=== PATIENT | female | born 1945 | race Caucasian/White ===

== ENCOUNTER 2020-01-18 10:54 | Emergency (ER) | payer MEDICARE, OTHER ==
[~2020-01-18] VITALS: Ht 157.5 cm; Wt 90.7 kg
[2020-01-18 11:22] LABS: BASOPHILS ABSOLUTE AUTO 0.03 K/mm3 (0.00-0.23); BASOPHILS PERCENT AUTO 0 % (0-2); EOSINOPHILS ABSOLUTE AUTO 0.01 K/mm3 (0.00-0.68); EOSINOPHILS PERCENT AUTO 0 % (0-6); Hematocrit 44.1 % (33.0-51.0); IMMATURE GRAN ABSOLUTE AUTO 0.04 K/mm3 (0.00-0.10); IMMATURE GRAN PERCENT AUTO 0 % (0-1); LYMPHOCYTES ABSOLUTE AUTO 2.09 K/mm3 (0.84-5.20); LYMPHOCYTES PERCENT AUTO 21 % (21-46); MONOCYTES ABSOLUTE AUTO 0.57 K/mm3 (0.16-1.47); MONOCYTES PERCENT AUTO 6 % (4-13); Mean Corpuscular HGB 29.9 pg (26.0-34.0); Mean Corpuscular HGB Conc 31.7 g/dL (31.5-36.5); Mean Corpuscular Volume 94 fL (80-100); Mean Platelet Volume 10.2 fL (9.1-12.4); NEUTROPHILS ABSOLUTE AUTO 7.39 K/mm3 (1.96-9.15); NEUTROPHILS PERCENT AUTO 73 % (41-73); Platelet Count 233 K/mm3 (150-400); RDW Coefficient Variation 11.9 % (11.7-14.2); RDW Standard Deviation 41.1 fL (35.1-46.3); Red Blood Cell Count 4.69 M/mm3 (3.80-5.20); White Blood Cell Count 10.13 K/mm3 (4.00-11.30)
[2020-01-18 11:51] LABS: Alanine Aminotransfer (ALT/SGP 17 U/L (12-78); Albumin, Blood 3.6 g/dL (3.4-5.0); Albumin/Globulin Ratio 0.9 (0.8-1.8); Alk Phos 73 U/L (50-136); Anion Gap 4 mmol/L (6-16); Aspartate Aminotrans (AST/SGOT 12 U/L (12-37); Bilirubin, Total 0.4 mg/dL (0.1-1.0); Blood Urea Nitrogen 12 mg/dL (8-24); Bun/Creatinine Ratio 20.8 (12.0-20.0); CO2, Blood 35 mmol/L (21-32); Calcium, Blood 9.9 mg/dL (8.5-10.1); Chloride, Blood 101 mmol/L (98-108); Creatinine, Blood 0.58 mg/dL (0.40-1.00); Glomerular Filtration Rate >60 (60-); Glucose, Blood 98 mg/dL (70-99); Potassium, Blood 3.6 mmol/L (3.5-5.5); Sodium, Blood 140 mmol/L (136-145); Total Protein, Blood 7.6 g/dL (6.4-8.2); Troponin I <0.015 ng/mL (0.000-0.040)
== END 2020-01-18 13:48 | disposition home or self-care (01) ==
LOC: ER 10:54
PROVIDERS: Emergency Medicine
DX: J40 Bronchitis, not specified as acute or chronic (principal); Z88.6 Allergy status to analgesic agent; Z87.891 Personal history of nicotine dependence
CPT/HCPCS: 36415; 71045; 80053; 83880; 84484; 85025; 93005; 93010; 99285-25

== ENCOUNTER 2020-01-30 11:03 | Inpatient (IN) | payer MEDICARE, OTHER ==
[~2020-01-30] VITALS: Ht 157.5 cm; Wt 86.6 kg
[2020-01-30 12:01] LABS: BASOPHILS ABSOLUTE AUTO 0.03 K/mm3 (0.00-0.23); BASOPHILS PERCENT AUTO 0 % (0-2); EOSINOPHILS ABSOLUTE AUTO 0.02 K/mm3 (0.00-0.68); EOSINOPHILS PERCENT AUTO 0 % (0-6); Hematocrit 44.9 % (33.0-51.0); Hemoglobin 14.4 g/dL (11.5-16.0); IMMATURE GRAN ABSOLUTE AUTO 0.05 K/mm3 (0.00-0.10); IMMATURE GRAN PERCENT AUTO 0 % (0-1); LYMPHOCYTES ABSOLUTE AUTO 1.17 K/mm3 (0.84-5.20); LYMPHOCYTES PERCENT AUTO 10 % (21-46); MONOCYTES ABSOLUTE AUTO 0.63 K/mm3 (0.16-1.47); MONOCYTES PERCENT AUTO 5 % (4-13); Mean Corpuscular HGB Conc 32.1 g/dL (31.5-36.5); Mean Corpuscular Volume 94 fL (80-100); Mean Platelet Volume 10.4 fL (9.1-12.4); NEUTROPHILS ABSOLUTE AUTO 9.73 K/mm3 (1.96-9.15); NEUTROPHILS PERCENT AUTO 84 % (41-73); Platelet Count 228 K/mm3 (150-400); RDW Coefficient Variation 12.2 % (11.7-14.2); RDW Standard Deviation 42.3 fL (35.1-46.3); White Blood Cell Count 11.63 K/mm3 (4.00-11.30)
[2020-01-30 12:25] LABS: Alanine Aminotransfer (ALT/SGP 16 U/L (12-78); Albumin, Blood 3.2 g/dL (3.4-5.0); Albumin/Globulin Ratio 0.7 (0.8-1.8); Alk Phos 85 U/L (50-136); Anion Gap 5 mmol/L (6-16); Aspartate Aminotrans (AST/SGOT 18 U/L (12-37); Bilirubin, Total 0.8 mg/dL (0.1-1.0); Blood Urea Nitrogen 9 mg/dL (8-24); Bun/Creatinine Ratio 16.3 (12.0-20.0); CO2, Blood 32 mmol/L (21-32); Calcium, Blood 9.5 mg/dL (8.5-10.1); Chloride, Blood 99 mmol/L (98-108); Creatinine, Blood 0.55 mg/dL (0.40-1.00); Globulin, Blood 4.5 g/dL (2.2-4.0); Glomerular Filtration Rate >60 (60-); Glucose, Blood 125 mg/dL (70-99); Sodium, Blood 136 mmol/L (136-145); Total Protein, Blood 7.7 g/dL (6.4-8.2); Troponin I <0.015 ng/mL (0.000-0.040)
[2020-01-30] MEDS ORDERED: PRED20 PO (12:41)
[2020-01-30] MEDS ORDERED: TIOT18 INH (12:41)
[2020-01-30] MEDS ORDERED: FLUTICASONE PRO16 GM (12:42)
[2020-01-30] MEDS ORDERED: ACETAMINOPHEN-COD #3 PO (12:43)
[2020-01-30] MEDS ORDERED: ADVAIR HFA 230-28 GM INH (12:44)
[2020-01-30] MEDS ORDERED: OMEP20ER PO (12:45)
[2020-01-30] MEDS ORDERED: NEURONTIN300 MG PO ×2 (12:45→16:07)
[2020-01-30 14:45] LABS: Influenza A, PCR Negative (NEGATIVE); Influenza B, PCR Negative (NEGATIVE); Resp Syncytial Virus, PCR Negative (NEGATIVE); SARS-Cov-2 (COVID-19) PCR, MMC Negative (NEGATIVE)
[2020-01-30] MEDS ORDERED: PRILOSEC OTC20 MG PO (16:07)
[2020-01-30] MEDS ORDERED: COMBIVENT RESPIM4 G1 INH (16:09)
--- NOTE | 2020-01-31 04:10 | NUR ---
SHIFT SUMMARY ADMITTED FOR COPD EXACERBATION VS. PNEUMONIA. FULL CODE. PLAN IS FOR IV ANTIBIOTICS AND SOLUMEDROL. SHE RUNS TACHYCARDIC. SHE INFORMS ME THAT THERE IS A POSSIBILITY SHE HAS COLON CANCER. SHE IS ALLERGIC TO IBUPROFEN. SHE IS ON 3 LPM O2 HERE, 2 LPM O2 IS BASELINE. SHE IS A&O X4. SHE DOES REFUSE CERTAIN MEDICATIONS AND TX'S.
--- NOTE | 2020-01-31 06:00 | NUR ---
PT REFUSING INTERVENTIONS PT REFUSING LAB DRAW, PT REFUSING ORDERED XRAY. PT STATES SHE DOES NOT WANT TO BE BOTHERED THIS EARLY AND SHE IS TRYING TO SLEEP
--- NOTE | 2020-01-31 06:14 | NUR ---
PT HAS AGREED TO GO TO XRAY XRAY TRANSPORT INFORMED
[2020-01-31 09:49] LABS: BASOPHILS ABSOLUTE AUTO 0.01 K/mm3 (0.00-0.23); BASOPHILS PERCENT AUTO 0 % (0-2); EOSINOPHILS PERCENT AUTO 0 % (0-6); Hematocrit 42.3 % (33.0-51.0); Hemoglobin 13.5 g/dL (11.5-16.0); IMMATURE GRAN ABSOLUTE AUTO 0.02 K/mm3 (0.00-0.10); IMMATURE GRAN PERCENT AUTO 0 % (0-1); LYMPHOCYTES ABSOLUTE AUTO 0.52 K/mm3 (0.84-5.20); LYMPHOCYTES PERCENT AUTO 5 % (21-46); MONOCYTES ABSOLUTE AUTO 0.11 K/mm3 (0.16-1.47); MONOCYTES PERCENT AUTO 1 % (4-13); Mean Corpuscular HGB 30.2 pg (26.0-34.0); Mean Corpuscular HGB Conc 31.9 g/dL (31.5-36.5); Mean Corpuscular Volume 95 fL (80-100); Mean Platelet Volume 10.7 fL (9.1-12.4); NEUTROPHILS ABSOLUTE AUTO 10.57 K/mm3 (1.96-9.15); NEUTROPHILS PERCENT AUTO 94 % (41-73); Platelet Count 212 K/mm3 (150-400); RDW Coefficient Variation 12.2 % (11.7-14.2); RDW Standard Deviation 42.5 fL (35.1-46.3); Red Blood Cell Count 4.47 M/mm3 (3.80-5.20); White Blood Cell Count 11.23 K/mm3 (4.00-11.30)
[2020-01-31 10:00] LABS: Anion Gap 6 mmol/L (6-16); Blood Urea Nitrogen 9 mg/dL (8-24); Bun/Creatinine Ratio 21.5 (12.0-20.0); CO2, Blood 31 mmol/L (21-32); Calcium, Blood 9.6 mg/dL (8.5-10.1); Chloride, Blood 100 mmol/L (98-108); Creatinine, Blood 0.42 mg/dL (0.40-1.00); Glomerular Filtration Rate >60 (60-); Glucose, Blood 200 mg/dL (70-99); Potassium, Blood 3.6 mmol/L (3.5-5.5); Sodium, Blood 137 mmol/L (136-145)
--- NOTE | 2020-01-31 17:19 | NUR ---
SHIFT SUMMARY PATIENT DENIES PAIN AND NAUSEA. SHORTNESS OF BREATH WITH EXERTION. 3L/NC TO MAINTAIN OXYGEN SATURATION ABOVE 92%. PATIENT UP INDEPENDENT TO BATHROOM. EATING AND DRINKING WELL. DR. GAN CONSULTED ON PATIENT. PATIENT NPO AT MIDNIGHT FOR BROCHOSCOPY IN AM. HOLD LOVENOX.
--- NOTE | 2020-02-01 04:31 | NUR ---
SHIFT SUMMARY ADMITTED FOR CAP. FULL CODE. PLAN IS FOR BRONCHOSCOPY THIS MORNING. PT HAS BEEN NPO SINCE MIDNIGHT. LOVENOX TO BE HELD THIS MORNING, I WILL PASS THIS ON TO DAY RN. RT TX'S ARE SCHEDULED. PT IS ON 3-3 1/2 L OF O2, 2 LPM O2 IS BASELINE. SHE IS A FORMER SMOKER, SHE INFORMS ME THAT SHE MAY HAVE COLON CANCER. SHE LIVES WITH HER SON AND DIL. DR MULLIGAN IS CONSULT.
[2020-02-01 04:38] LABS: Hematocrit 40.3 % (33.0-51.0); Hemoglobin 12.5 g/dL (11.5-16.0); Mean Corpuscular HGB 29.8 pg (26.0-34.0); Mean Corpuscular Volume 96 fL (80-100); Mean Platelet Volume 10.4 fL (9.1-12.4); Platelet Count 205 K/mm3 (150-400); RDW Coefficient Variation 12.4 % (11.7-14.2); RDW Standard Deviation 43.9 fL (35.1-46.3); White Blood Cell Count 11.17 K/mm3 (4.00-11.30)
[2020-02-01 05:03] LABS: Albumin, Blood 2.7 g/dL (3.4-5.0); Anion Gap 2 mmol/L (6-16); Blood Urea Nitrogen 10 mg/dL (8-24); Bun/Creatinine Ratio 17.9 (12.0-20.0); CO2, Blood 37 mmol/L (21-32); Calcium, Blood 9.3 mg/dL (8.5-10.1); Chloride, Blood 101 mmol/L (98-108); Creatinine, Blood 0.56 mg/dL (0.40-1.00); Glomerular Filtration Rate >60 (60-); Glucose, Blood 104 mg/dL (70-99); Phosphorus, Blood 3.7 mg/dL (2.5-4.9); Potassium, Blood 3.5 mmol/L (3.5-5.5); Sodium, Blood 140 mmol/L (136-145)
--- NOTE | 2020-02-01 13:29 | NUR ---
History, Chart, Medications and Allergies reviewed before start of procedure. Patient confirms NPO status and agrees with scheduled surgery.
--- NOTE | 2020-02-01 14:43 | NUR ---
02/01/20 1443 Brennon Hernandes History, Chart, Medications and Allergies reviewed before start of procedure.MONITOR INTACT WITH CONTINUOUS PULSE OXIMETRY AND INTERMITTENT BP.3-LEAD EKG REVIEWED WITH PHYSICIAN PRIOR TO START OF PROCEDURE.O2 VIA N/C INTACT THROUGHOUT SEDATION/PROCEDURE. PATIENT DETERMINED TO BE ASA APPROPRIATE FOR PROPOFOL SEDATION PRIOR TO START OF PROCEDURE BY DR. MULLIGAN
--- NOTE | 2020-02-01 17:53 | NUR ---
SHIFT SUMMARY PT AXO, THOUGH IRRITABLE AND WITHDRAWN. REFUSED ALL AM MEDS EXCEPT FOR PRILOSEC. PT UP AD MELIZA IN ROOM. SOB AT REST AND WITH EXERTION. PT O2 SATS BETWEEN 91-95% THIS SHIFT ON 3L. PT DENIES PAIN AND N/V. PT HAD BRONCHOSCOPY WITH BIOPSY, SEE NOTE. PT MAINTAINING SATS POST PROCEDURE. BED IN LOW POSITION, CALL LIGHT WITHIN REACH.
--- NOTE | 2020-02-02 00:57 | NUR ---
02/01/20 2230 PT C/O SOB. MODERATE SOB NOTED AT REST. VITALS TAKEN AND O2 SAT= 95-100%. PT ON O2 AT 3LPM. RESP CARE CALLED AND BREATHING TX GIVEN. PT FEELING BETTER AFTERWARDS.
--- NOTE | 2020-02-02 06:21 | NUR ---
02/02/20 0620 PT SLEPT ON AND OFF DUE TO EPISODES OF MODERATE SOB. VITALS REMAIN STABLE. VOIDING QS. FRUSTRATED WITH ILLNESS. IRRITABLE AT TIMES WITH STAFF. RESP. CARE CALLED SEVERAL TIMES FOR TREATMENTS, WHICH HELPED.
--- NOTE | 2020-02-02 08:06 | NUR ---
ASSUMED CARE OF PT- PT ADMITTED WITH POSSIBLE PNEUMONIA AND LEFT LUNG COLLAPSE R/T MUCUS PLUGGING. PT IN BED CALL LIGHT IN REACH NO S&S OF DISTRESS NOTED AT SHIFT CHANGE. ON MORNING ASSESSMENT PT WAS WORKING A BIT HARDER TO BREATHE LUNG SOUNDS CLEAR IN THE RIGHT AND COARSE WHEEZE IN THE UPPER LEFT ABSENT IN THE LOWER LEFT. PT ON 3L VIA NC HOME DOSE IS 2L. SATS IN THE 90'S. WILL CTM.
--- NOTE | 2020-02-02 11:43 | NUR ---
PT SON SADIE CALLED FOR AN UPDATE- WANTED TO KNOW IF BIOPSY RESULTS WERE IN INFORMED HIM THOSE TYPICALLY TAKE DAYS TO GET THE RESULTS. PT STATED FAMILY HAS BEEN CALLING AND THE PT IS NOT ANSWERING THE PHONE. REQUESTED STAFF CHECK ON THE PHONE TO ENSURE IT IS WORKING. HE ALSO STATED THE PT SEEMS TO BE UNAWARE OF WHAT IS GOING ON WITH HER HEALTH AND STATES SHE IS [place] AND MAY NOT BE HEARING MUCH STAFF ARE THINKING. WILL ATTEMPT TO IMPROVE COMMUNICATION WITH THE PT.
--- NOTE | 2020-02-02 17:14 | NUR ---
SHIFT SUMMARY- PT HAS HAD NO ACUTE CHANGE T/O THE SHIFT; CHANGED FROM PO TO IV SOLUMEDROL TODAY. IV INFILTRATED THIS EVENING AND WAS REMOVED. NEW IV STARTED. IV SOLUMEDROL GIVEN AFTER IV REPLACED. PT C/O HEADACHE THIS EVENING, MEDICATED WITH TYLENOL. BRONCHOSCOPY COMPLETED YESTERDAY WITH BIOPSY, PT AWAITING RESULTS. PT ON 3L O2 VIA NC. PT WORKED WITH OT TODAY AFTER GOING TO THE BATHROOM SHE WAS SATTING 89% ON 3L. PT INDEPENDENT IN THE ROOM. SPOKE TO RT ABOUT TITRATING DOWN THE O2 TO HER HOME DOSE, FOR PT SAFETY O2 HAS REMAINED AT 3L T/O THE DAY.
--- NOTE | 2020-02-03 05:54 | NUR ---
SHIFT SUMMARY: ARIANNE IS A&OX4. VSS, NO ACUTE EVENTS OVERNIGHT. SHE DID VOICE FRUSTRATION AT HER INABILITY TO SLEEP. SHE REPORTED TAKING GABAPENTIN AT NIGHT WHICH HELPS HER TO SLEEP. ORDER OBATINED FROM [employer] TRAVEL COUNSELOR PHYSICIAN TO CHANGE GABAPENTIN ORDER TO BEDTIME. PT IS INDEPENDENT IN THE ROOM. SHE DID DESAT TO 88% ON EXERTION ON 2 L NC, BUT RECOVERED QUICKLY. SHE DOES USE 2 L VIA NC AT BASELINE. SHE IS ABLE TO MAKE HER NEEDS KNOWN. SHE IS LYING IN BED WITH HER CALL LIGHT IN REACH. WILL REPORT TO DAY SHIFT RN.
--- NOTE | 2020-02-03 11:15 | NUR ---
0930 PT C.O. RIB AND BACK PAIN. STATES TAKES TYLENOL 3. NOT ON EMAR. CALLED DR PANDYA. ORDERS GIVEN
--- NOTE | 2020-02-03 17:10 | NUR ---
PT QUITE PLEASANT AND TALKATIVE TODAY. WANTING TO GO HOME. STATES MOST LIKELY TOMORROW. NO NEW CONCERNS TODAY. PAIN MANAGED WITH AVAIL MEDS. PT VERBALIZED HAS TYLENOL 3 IN PURSE AND WAS ABOUT TO TAKE ONE THIS MORNING. PILLS NOW IN PHARMACY. OKAYED ON EMAR OUR TYLENOL 3. PT STATES IS WORKING WELL. COUGH IMPROVING T/O DAY. BED IN LOW POSITIOIN, CALL LITE IN REACH, CALLS APROP
--- NOTE | 2020-02-04 04:28 | NUR ---
NURSE EXTERN SUMMARY A/O TO SELF ONLY. PT FINISHED SUPREP BOWEL TX THIS SHIFT, MULTIPLE EPISODES OF INCONTINENT LOOSE STOOLS, NO BLOOD NOTED IN URINE OR STOOLS. SHE HAS BEEN YELLING OUT FOR HER T/O SHIFT, EASILY REDIRECTABLE. DENIES PAIN OR SOB. PT TO HAVE COLONOSCOPY THIS AM. NO ACUTE CHANGES AT THIS TIME. BED IN LOWEST POSITION WITH CALL LIGHT IN REACH. WILL CONTINUE TO MONITOR AND REPORT TO ONCOMING RN
--- NOTE | 2020-02-04 04:39 | NUR ---
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 CURRENTLY ON 2L O2 VIA NC, SATS HAVE BEEN GREATER THAN 92. DENIES PAIN OR SOB AT THIS TIME. NO ACUTE CHANGES NOTED. BED IN LOWEST POSITION WITH CALL LIGHT IN REACH. WILL CONTINUE TO MONITOR AND REPORT TO ONCOMING RN.
--- NOTE | 2020-02-04 08:30 | NUR ---
PT PLEASANT COOP A/O X3 TALKATIVE. EXPRESSING HOPEFUL TO GO HOME THIS DAY. FEELS BASELINE. H/R REG, NO MURMER NOTED. NO TELE. LUNGS DIM ON LEFT, VERY LITTLE AIR MOVEMENT. RT IS CLEAR WITH LITE WHEEEZE ON LOW RT. ON 2L O2 PER HOME DOSE. RESP EASY, UNLABORED. BT X4 LAST BM 2 DAYS, VOIDS BATHROOM. INDEPENDANT IN ROOM. BED IN LOW POSITION, CALL LITE IN REACH CALLS APPROP
[2020-02-04] MEDS ORDERED: AZIT500 PO (13:07)
[2020-02-04] MEDS ORDERED: GABA300 PO (13:09)
[2020-02-04] MEDS ORDERED: GUAI600T33 PO (13:09)
[2020-02-04] MEDS ORDERED: ALBU2.5V5 INH (13:11)
[2020-02-04] MEDS ORDERED: Prednisone10 MG PO (13:12)
--- NOTE | 2020-02-04 14:49 | NUR ---
DISCHARGE REVIEWD WITH PT WHOM VERBALIZED UNDERSTANDING MEDS AND INST. IV PULLED INTACT. NO TLE. PT WHELED TO DOOR BY TORY REYNA. AT 1450
== END 2020-02-04 14:48 | disposition home health service (06) | DRG 206 ==
LOC: ER 11:03 → MEDS 11:04
PROVIDERS: Emergency Medicine; Internal Medicine; Internal Medicine Critical Care Medicine; Nurse Practitioner Acute Care; ADMIT Internal Medicine
PROC: 0B978ZZ Drainage of Left Main Bronchus, Via Natural or Artificial Opening Endoscopic (ICD-10-PCS; 2020-02-01)
PROC: 0B9K8ZZ Drainage of Right Lung, Via Natural or Artificial Opening Endoscopic (ICD-10-PCS; 2020-02-01)
PROC: 3E0F8GC Introduction of Other Therapeutic Substance into Respiratory Tract, Via Natural or Artificial Opening Endoscopic (ICD-10-PCS; 2020-02-01)
PROC: 0BB78ZX Excision of Left Main Bronchus, Via Natural or Artificial Opening Endoscopic, Diagnostic (ICD-10-PCS; principal; 2020-02-01 14:45)
DX: J98.11 Atelectasis (principal); J96.11 Chronic respiratory failure with hypoxia; J44.1 Chronic obstructive pulmonary disease with (acute) exacerbation; Z99.81 Dependence on supplemental oxygen; Z20.828 Contact with and (suspected) exposure to other viral communicable diseases; K21.9 Gastro-esophageal reflux disease without esophagitis; Z87.891 Personal history of nicotine dependence
CPT/HCPCS: 0241U; 36415; 71045; 71046; 71260; 80048; 80053; 80069; 83605; 83880; 84145; 84484; 85025; 85027; 87040; 87070; 87205; 88108; 88305; 88341; 88342; 93005; 93010; 94640; 94667; 94668; 94760; 96365; 96366; 96367; 96375; 96376; 97162; 97165; 97530; 97535; 99285-25; A9270; G0378; J0171; J0456; J0696; J1650; J2001; J2704; J2920; J7030; J7050; J7120; J7512; Q9967

== ENCOUNTER → 2020-03-25 | Outpatient (CLI) | payer MEDICARE, OTHER ==
[~2020-03-25] MED LIST: ACETAMINOPHEN-COD #3 PO; ADVAIR HFA 230-28 GM INH; ALBU2.5V5 INH; AZIT500 PO; COMBIVENT RESPIM4 G1 INH; FLUTICASONE PRO16 GM; GABA300 PO; GUAI600T33 PO; NEURONTIN300 MG PO; OMEP20ER PO; PRED20 PO; PRILOSEC OTC20 MG PO; Prednisone10 MG PO; TIOT18 INH
[2020-03-25 11:31] LABS: BASOPHILS ABSOLUTE AUTO 0.05 K/mm3 (0.00-0.23); BASOPHILS PERCENT AUTO 1 % (0-2); EOSINOPHILS ABSOLUTE AUTO 0.04 K/mm3 (0.00-0.68); EOSINOPHILS PERCENT AUTO 1 % (0-6); Hemoglobin 12.7 g/dL (11.5-16.0); IMMATURE GRAN ABSOLUTE AUTO 0.16 K/mm3 (0.00-0.10); IMMATURE GRAN PERCENT AUTO 2 % (0-1); LYMPHOCYTES ABSOLUTE AUTO 1.71 K/mm3 (0.84-5.20); LYMPHOCYTES PERCENT AUTO 20 % (21-46); MONOCYTES ABSOLUTE AUTO 0.64 K/mm3 (0.16-1.47); MONOCYTES PERCENT AUTO 7 % (4-13); Mean Corpuscular HGB 30.2 pg (26.0-34.0); Mean Corpuscular HGB Conc 31.8 g/dL (31.5-36.5); Mean Corpuscular Volume 95 fL (80-100); Mean Platelet Volume 10.3 fL (9.1-12.4); NEUTROPHILS ABSOLUTE AUTO 6.14 K/mm3 (1.96-9.15); NEUTROPHILS PERCENT AUTO 70 % (41-73); Platelet Count 359 K/mm3 (150-400); RDW Coefficient Variation 13.1 % (11.7-14.2); RDW Standard Deviation 43.5 fL (35.1-46.3); White Blood Cell Count 8.74 K/mm3 (4.00-11.30)
== END | disposition home or self-care (01) ==
LOC: LAB 11:10 → LAB SHORT 11:10
PROVIDERS: Internal Medicine Hematology & Oncology
DX: C34.90 Malignant neoplasm of unspecified part of unspecified bronchus or lung (principal)
CPT/HCPCS: 85025

== ENCOUNTER 2020-11-18 14:38 | Emergency (ER) | payer MEDICARE, OTHER ==
[~2020-11-18] VITALS: Ht 157.5 cm; Wt 81.7 kg
== END 2020-11-18 15:48 | disposition other institution (70) ==
LOC: ER 14:38
DX: M25.532 Pain in left wrist (principal); J44.9 Chronic obstructive pulmonary disease, unspecified; Z88.6 Allergy status to analgesic agent; Z79.82 Long term (current) use of aspirin; Z79.52 Long term (current) use of systemic steroids
CPT/HCPCS: 73130; 99283-25

== ENCOUNTER → 2021-12-22 | Outpatient (CLI) | payer MEDICARE, OTHER ==
[2021-12-22 10:20] LABS: BASOPHILS ABSOLUTE AUTO 0.03 K/mm3 (0.00-0.23); BASOPHILS PERCENT AUTO 1 % (0-2); EOSINOPHILS ABSOLUTE AUTO 0.11 K/mm3 (0.00-0.68); EOSINOPHILS PERCENT AUTO 2 % (0-6); Hemoglobin 13.1 g/dL (11.5-16.0); IMMATURE GRAN ABSOLUTE AUTO 0.03 K/mm3 (0.00-0.10); IMMATURE GRAN PERCENT AUTO 1 % (0-1); LYMPHOCYTES PERCENT AUTO 17 % (21-46); MONOCYTES ABSOLUTE AUTO 0.29 K/mm3 (0.16-1.47); MONOCYTES PERCENT AUTO 6 % (4-13); Mean Corpuscular HGB 28.9 pg (26.0-34.0); Mean Corpuscular Volume 91 fL (80-100); Mean Platelet Volume 10.4 fL (9.1-12.4); NEUTROPHILS ABSOLUTE AUTO 3.95 K/mm3 (1.96-9.15); NEUTROPHILS PERCENT AUTO 74 % (41-73); Platelet Count 212 K/mm3 (150-400); RDW Coefficient Variation 13.9 % (11.7-14.2); RDW Standard Deviation 46.5 fL (35.1-46.3); Red Blood Cell Count 4.53 M/mm3 (3.80-5.20); White Blood Cell Count 5.31 K/mm3 (4.00-11.30)
[2021-12-22 10:38] LABS: Albumin, Blood 3.4 g/dL (3.4-5.0); Albumin/Globulin Ratio 0.8 (0.8-1.8); Bilirubin, Total 0.3 mg/dL (0.1-1.0); Bun/Creatinine Ratio 14.6 (12.0-20.0); Calcium, Blood 9.9 mg/dL (8.5-10.1); Creatinine, Blood 0.62 mg/dL (0.40-1.00); Globulin, Blood 4.1 g/dL (2.2-4.0); Potassium, Blood 4.8 mmol/L (3.5-5.5); Total Protein, Blood 7.5 g/dL (6.4-8.2)
== END | disposition home or self-care (01) ==
LOC: LAB 09:15 → LAB SHORT 09:15
PROVIDERS: Internal Medicine Hematology & Oncology
DX: C34.90 Malignant neoplasm of unspecified part of unspecified bronchus or lung (principal)
CPT/HCPCS: 80053; 82378; 85025